=== PATIENT | male | born 2005 | race Hispanic/Latino ===

== ENCOUNTER 2025-09-12 11:37 | Emergency (ER) | payer SELFPAY ==
[~2025-09-12] VITALS: Ht 170.2 cm; Wt 90.7 kg
--- NOTE | 2025-09-12 11:44 | NUR ---
WOUND CLEANSED BY
[2025-09-12] MEDS ORDERED: LIDOCAINE HCL 1% 20 ML VIAL INJ SCH (12:00)
--- NOTE | 2025-09-12 12:05 | ERN ---
General Chief Complaint: Laceration/Avulsion Stated Complaint: LACERATION Time Seen by MD: 11:41 Time Seen by Midlevel: 11:41 Source: patient History of Present Illness Initial Comments 19-year-old male who presents to the emergency department with PD due to finger laceration. Patient reports it occurred with a glass this morning. Patient denies any numbness tingling or decreased range of motion to the finger. Denies further injuries. PMHx ADHD (does not take any medications) Allergies: Coded Allergies: No Known Drug Allergies (Unverified Allergy, Unknown, 09/12/25) Home Meds Active Scripts Cephalexin (Cephalexin) 500 Mg Tablet, 1 TAB PO QID for 7 Days, #28 TAB 0 Refills Prov:MARYANA DAVENPORT 09/12/25 Past Medical History Past Medical History: Other Medical History Other: ADHD, ADD Past Surgical History: None ROS Dictation Constitutional: Negative for fever,chills, and weight loss Eyes: Negative for injury, pain,redness, and discharge ENT: Negative for injury,pain or swelling Cardiovascular: Negative for chest pain, palpitations, and edema Respiratory: Negative for shortness of breath, cough, and wheezing, Abdomen/GI: Negative for abdominal pain, nausea, vomiting, diarrhea, and constipation Back: Negative for injury and pain : Negative for painful urination, bleeding or discharge MS/Extremity: Negative for injury and deformity Skin: Positive for finger laceration Negative for rash, and discoloration Neuro: Negative for headache, weakness, numbness, tingling, and seizure Psych: Negative for suicide ideation, homicidal ideation, and hallucinations Physical Exam Physical Exam Dictation General: awake, alert, no acute distress Head/Face: Normocephalic, atraumatic Eyes: PERRL, EOMI, normal conjunctiva ENT: oral cavity clear, oral mucosa moist Neck: Supple, normal range of motion Cardiovascular: RRR, normal S1/S2 Respiratory: CTAB, no respiratory distress Skin: Warm, dry, normal turgor, no rash. 2 cm superficial laceration to the emergency left hand 3rd digit MS/Extremity: Pulses equal, no cyanosis, neurovascular intact, FROM Neuro: COAx4, GCS 15, strength 5/5, CN 2-12 intact, normal cerebellar exam, normal gait Psych: Normal behavior, mood, and affect normal Results EKG/XRAY/US/CT/MRI X-RAY Comment REASON: R/O Foreign object in laceration ORDERING PHYSICIAN: MARYANA DAVENPORT PROCEDURE: HAND 3V LT - HAND 3+VWS LT EXAM: CR left hand, 3 View. CLINICAL HISTORY: R/O Foreign object in laceration COMPARISON: None provided. FINDINGS: There is a 0.8 x 0.7 cm radiopacity overlying the base of the second metacarpal. It is unclear whether this reflects a bone island versus a foreign body ventral to the bone. Recommend correlation with site of laceration and if warranted CT imaging may be obtained for further evaluation. Presumed bone island within the base of the fifth proximal phalanx. There is no displaced fracture or evidence of periostitis. Joint spaces are preserved. IMPRESSION: 1. 0.8 x 0.7 cm radiopacity overlying the base of the second metacarpal, potentially representing a foreign body or bone island. Recommend clinical correlation with site of laceration and consider CT imaging for further evaluation if clinically warranted. 2. No acute fracture or dislocation. /[place] DICTATED BY: MANUEL CRISOSTOMO Jr., MD DATE: 09/12/25 1325 [facility] MDM: Differential diagnosis: Laceration, abrasion, retained foreign object Rationale: 19-year-old male who presents to the emergency department with PD due to finger laceration. Patient reports it occurred with a glass this morning. Patient denies any numbness tingling or decreased range of motion to the finger. Denies further injuries. PMHx ADHD (does not take any medications). Per physical examination 2 cm superficial laceration noted to the left hand middle digit, no foreign object noted. X-rays negative for foreign object. Laceration repaired in the ED with Dermabond. Patient was educated on findings and treatment. Advised to follow up with PCP. Return to the emergency department if any worsening symptoms. Patient verbalized understanding. Patient is stable for discharge. There are no social concerns with this patient. I independently interpreted the test that were performed, results were reviewed by me and considered findings on radiology if ordered. Medical management and examination interpretation discussions were had by me wit h other qualified healthcare professionals as indicated for the patient's care. ED Course Orders Procedure Category Date Status Time Hand 3+Vws Lt RAD 09/12/25 Resulted 11:41 Acetaminophen 500mg PHA 09/12/25 Complete Tab (Tylenol 500mg T 12:00 Lidocaine Hcl 1% 20ml PHA 09/12/25 Complete Vial (Lidocaine Hc 12:00 Dermabond (Dermabond) PHA 09/12/25 Complete 12:56 Tetanus,Diphtheria PHA 09/12/25 Complete Tox [Adult] (Diphther 13:30 Current Medications Medications (Trade) Dose Ordered Sig/Tate Route PRN Reason Start Time Stop Time Status Last Admin Dose Admin Acetaminophen (TYLenol 500MG TAB) 1,000 mg ONCE ONCE PO 09/12/25 12:00 09/12/25 12:01 DC 09/12/25 13:33 Lidocaine HCl (Lidocaine HCl 1% 20ml Vial) 10 ml ONCE INJ 09/12/25 12:00 09/12/25 11:51 DC Octyl Cyanoacrylate (Dermabond) 1 each ONCE STAT TP 09/12/25 12:56 09/12/25 12:58 DC Tetanus/ Diphtheria Toxoids Adsorbed (DiphthERIA-teTANUS TOXOID [ADULT]/ DECAVAC) 0.5 ml ONCE ONCE IM 09/12/25 13:30 09/12/25 13:31 DC 09/12/25 13:35 Vital Signs Date Time Temp Pulse Resp B/P (MAP) Pulse Ox O2 Delivery O2 Flow Rate FiO2 09/12/25 13:20 98.2 60 16 132/68 98 Room Air* 0 21 09/12/25 11:39 98.1 70 20 124/64 98 Room Air Laceration/Wound Repair Laceration/Wound Repair : Wound Location: upper extremity Wound's Depth, Shape: superficial Wound Explored: clean Wound Repaired With: Dermabond DX & DISP Disposition: Discharge Departure Impression: Primary Impression: Finger laceration Condition: Stable Scripts Cephalexin (Cephalexin) 500 Mg Tablet 1 TAB PO QID for 7 Days, #28 TAB 0 Refills Prov: MARYANA DAVENPORT PAC 09/12/25 Additional Instructions: Discharge home. Rest. Follow up with primary care in 24 hours. Return to the ER for any acute changes or worsening symptoms. If any medications were prescribed take as directed. Okay to continue home medications unless otherwise discussed during your visit in the emergency room today. Patient was also advised to follow-up with primary care physician in 1 to 2 days for continued monitoring. Referrals: SELF,REFERRAL (PCP) I performed the substantive portion of the visit. I have reviewed and gael marlow made and approve the management plan that is documented in the notes by myself or the BRYAN. I acknowledge full responsibility for the patient's management plan. MARYANA DAVENPORT PAC Sep 12, 2025 12:05
--- NOTE | 2025-09-12 12:25 | HMCIMG ---
EXAM: CR left hand, 3 View. CLINICAL HISTORY: R/O Foreign object in laceration COMPARISON: None provided. FINDINGS: There is a 0.8 x 0.7 cm radiopacity overlying the base of the second metacarpal. It is unclear whether this reflects a bone island versus a foreign body ventral to the bone. Recommend correlation with site of laceration and if warranted CT imaging may be obtained for further evaluation. Presumed bone island within the base of the fifth proximal phalanx. There is no displaced fracture or evidence of periostitis. Joint spaces are preserved. IMPRESSION: 1. 0.8 x 0.7 cm radiopacity overlying the base of the second metacarpal, potentially representing a foreign body or bone island. Recommend clinical correlation with site of laceration and consider CT imaging for further evaluation if clinically warranted. 2. No acute fracture or dislocation. /[place]
[2025-09-12] MEDS ORDERED: OCTYL 2-CYANOACRYLATE 1 EACH TP STA (12:56)
[2025-09-12] MEDS ORDERED: CEPH500T PO (13:18)
[2025-09-12 13:20] VITALS: BP 132/68; PULSE 60; RESP 16; TEMP 98.2; O2SAT 98
== END 2025-09-12 16:47 | disposition home or self-care (01) ==
LOC: EDH 11:37 → EEVIPCON 11:37 → EDH 16:47
DX: S61.213A Laceration without foreign body of left middle finger without damage to nail, initial encounter (principal); Z79.899 Other long term (current) drug therapy; W25.XXXA Contact with sharp glass, initial encounter; Y93.89 Activity, other specified; Y92.89 Other specified places as the place of occurrence of the external cause; Y99.8 Other external cause status
CPT/HCPCS: 12001; 73130; 90471; 90714; 99283